=== PATIENT | female | born 1975 | race Caucasian/White ===

== ENCOUNTER 2020-06-03 19:42 | Emergency (ER) | payer MEDICAID, SELFPAY ==
[2020-06-03 20:39] VITALS: BP 125/75; PULSE 57; RESP 16; TEMP 37.3; O2SAT 97
[2020-06-03 20:46] VITALS: BP 125/55; PULSE 57; RESP 16; TEMP 37.3; O2SAT 97; BMI 28.3
[2020-06-03 21:12] LABS: COVID-19 Test Negative (Negative)
--- NOTE | 2020-06-04 04:09 | ED_ITS ---
HPI - URI/Sore Throat General Chief Complaint: Upper Respiratory Symptoms Stated Complaint: flu like Time Seen by Provider: 06/03/20 22:51 Source: patient Mode of arrival: ambulatory Limitations: no limitations History of Present Illness HPI Narrative: 44-year-old female with no significant past medical history presents to the emergency department for COVID-19 testing for positive COVID-19 contact. She is reporting headache, intermittent fevers, and cough. MD elicited complaint: fever, cough and other (Headache) Consistency: intermittent Severity: moderate Able to tolerate fluids by mouth: Yes Context: sick contacts Related Data Allergies Allergy/AdvReac Type Severity Reaction Status Date / Time No Known Allergies Allergy Unverified 12/19/19 19:39 [No Known Allergies*] Review of Systems Review of Systems: Constitutional: positive Fever, positive Chills, positive fatigue, positive Malaise ENT/Mouth: No sore throat, no runny nose Eyes: No Discharge Cardiovascular: No Chest Pain, No SOB Respiratory: No Cough, No Sputum, No Wheezing, No Smoke Exposure, No Dyspnea Gastrointestinal: No Nausea, No Vomiting, No Diarrhea Genitourinary: no irregular bleeding, No Dysuria, No Urinary Frequency, No Hematuria, No Urinary Incontinence, No Urgency, No Flank Pain, Musculoskeletal: positive Myalgia Skin: No rash Neuro: Positive Headache Yes all other systems are reviewed and are negative [facility] Past Medical History Attestation statement: The following information was validated with the patient. Source: old records reviewed Medical History (Updated 06/03/20 @ 22:51 by Anushka Webb NP) Bradycardia Surgical History H/O tubal ligation Social History Social History Advance Directives: No Advance Directives Information Provided: Yes Physical Exam Vital Signs: Vital Signs: Last Vital Signs Temp 99.2 F 06/03/20 20:46 Pulse 57 06/03/20 20:46 Resp 16 06/03/20 20:46 BP 125/55 L 06/03/20 20:46 Pulse Ox 97 06/03/20 20:46 Body Mass Index 28.3 Appearance: Alert. Oriented X3. No acute distress. Eyes: Pupils equal, round and reactive to light. ENT: Pharynx normal. Neck: Normal inspection. Neck supple. CVS: Normal heart rate and rhythm. Pulses normal. Respiratory: No respiratory distress. Breath sounds normal. Abdomen: Soft and nontender. Skin: Skin warm and dry. Normal skin color. Normal skin turgor. Extremities: No lower extremity edema. Neuro: No motor deficit. No sensory deficit. Course Course Course Narrative: 44-year-old female presents with known COVID positive contact with headache, intermittent cough, intermittent fevers and chills. COVID swab is negative. Patient was advised to treat herself as if she were positive until her symptoms have subsided. Patient verbalized understanding of and agrees to plan of care discharge home. MDM - URI/Sore Throat Differential Diagnosis Differential diagnosis: Likely upper respiratory infection, viral infection, influenza and pharyngitis Medical Records Attestation: I reviewed the patient's medical records. Lab Data Attestation: I reviewed the patient's lab results. Labs: Lab Results 06/03/20 Range/Units 20:49 COVID-19 ([place]) Negative (Negative) COVID-19 Clin Com See Note Discharge Plan Discharge Clinical Impression: COVID-19 Patient Disposition: Home, Self-Care Instructions: COVID-19 (Coronavirus Disease 2019) (ED) Additional Instructions: You were evaluated for symptoms consistent with COVID-19 and or COVID-19 positive exposure. Your COVID test results are negative. Thank you for choosing this emergency department for evaluation. Please follow-up with primary care physician as needed. Return to the emergency department for any new, concerning, or worsening symptoms. Interventions: ED Discharge Assessment Last Done: 06/03/20 23:00 Discharge Date/Time: 06/03/20 23:06
== END 2020-06-03 23:06 | disposition home or self-care (01) ==
PROVIDERS: Emergency Provider Emergency Medicine
DX: U07.1 COVID-19 (principal); R51.9 Headache, unspecified; R50.9 Fever, unspecified; R05 Cough
CPT/HCPCS: 36415; 87635; 99283

== ENCOUNTER 2020-06-19 15:32 | Outpatient (REF) | payer MEDICAID, SELFPAY | END 2020-06-19 15:33 | disposition home or self-care (01) | LOC: HO.LAB 15:32 | PROVIDERS: Visit Provider Internal Medicine | DX: Z20.822 Contact with and (suspected) exposure to COVID-19 (principal) | CPT/HCPCS: 36415; C9803; U0003; U0005 ==

== ENCOUNTER 2020-06-26 15:22 | Outpatient (REF) | payer MEDICAID, SELFPAY | END 2020-06-26 15:23 | disposition home or self-care (01) | LOC: HO.LAB 15:22 | PROVIDERS: Visit Provider Internal Medicine | DX: Z20.822 Contact with and (suspected) exposure to COVID-19 (principal) | CPT/HCPCS: 36415; C9803; U0003; U0005 ==

== ENCOUNTER 2020-10-24 06:53 | Emergency (ER) | payer MEDICAID, SELFPAY ==
[2020-10-24 07:05] VITALS: BP 147/71; PULSE 46; RESP 17; TEMP 36.9; O2SAT 96; BMI 28.3
--- NOTE | 2020-10-24 07:41 | ED_ITS ---
HPI - General Adult General Chief complaint: General Medical Stated complaint: jaw infection Time Seen by Provider: 10/24/20 07:40 Source: patient Mode of arrival: ambulatory Limitations: no limitations History of Present Illness HPI narrative: 44-year-old female came in for evaluation for right-sided facial pain. 44-year-old female who has widespread dental decay problem, came in with right- sided come pain and right-sided facial pain and swelling. Patient is awaiting to see a dentist for dental work. Patient declined any fever, or abscess. Related Data Previous Rx's Medication Instructions Recorded amoxicillin 500 mg PO Q8H #20 tab 10/24/20 ibuprofen 400 mg PO Q8H PRN #20 tab 10/24/20 Allergies Allergy/AdvReac Type Severity Reaction Status Date / Time No Known Allergies Allergy Unverified 12/19/19 19:39 [No Known Allergies*] Review of Systems Review of Systems: All other systems are reviewed and are negative Constitutional: Reports as per HPI and Reports no additional constitutional complaints Eyes: Reports as per HPI and Reports no additional eye complaints Reports system reviewed and no additional complaints, except as documented Cardiovascular: Reports as per HPI and Reports no additional cardiovascular complaints Respiratory: Reports as per HPI and Reports no additional respiratory complaints Gastrointestinal: Reports as per HPI and Reports no additional gastrointestinal complaints Genitourinary: Reports no additional female genitourinary complaints Musculoskeletal: Reports no additional musculoskeletal complaints Skin/Breast: Reports system reviewed and no additional complaints, except as docu Psychiatric: Reports no additional psychiatric complaints Endocrine: Reports no additional endocrine complaints Hematologic/Lymphatic: Reports no additional hematologic/lymphatic complaints Allergic/Immunologic: Reports no additional allergic/immunologic complaints Reports system reviewed and no additional complaints, except as documented and Reports Abnormal speech present [facility] Past Medical History Medical History Bradycardia Surgical History H/O tubal ligation Social History Social History Advance Directives: Yes Advance Directives Information Provided: No Advance Directives on File: No Patient : No Physical Exam Vital Signs: Vital Signs: Last Vital Signs Temp 98.5 F 10/24/20 07:05 Pulse 46 L 10/24/20 07:05 Resp 17 10/24/20 07:05 BP 147/71 H 10/24/20 07:05 Pulse Ox 96 10/24/20 07:05 Body Mass Index 28.3 Vital signs have been reviewed as appeared to be correct. Blood pressure normal. Heart rate normal. Respiration rate normal. Temperature normal. Oxygen saturation normal. Appearance: Alert. Oriented X3. No acute distress. Head: Normal external exam. Normocephalic. Atraumatic. No Tobias signs noted. No raccoon eyes noted Dental exam: Widespread decay, right-sided lower gum swelling and tenderness, no fluctuation. Eyes: PERRLA. EOMI. Conjunctiva and sclera normal. Eyelids normal. ENT: TM's Normal. Pharynx normal. Uvula midline. Moist mucous membranes. No trismus noted. No drooling noted. No muffled voice noted. Neck: Normal inspection. Neck supple. FROM. No adenopathy. Thyroid Normal. No meningeal signs. No neck mass noted. CVS: Normal heart rate and rhythm. Heart sound normal. No murmurs noted. Pulses normal throughout. Respiratory: No respiratory distress. Painless inspiration. Breath sounds normal. No wheezes/rales/rhonchi noted. Chest nontender. No accessory muscle usage noted or decreased air movement noted. Abdomen: Soft and nontender. Bowel sounds normal in all 4 quadrants. No distention noted. No organomegaly noted. No visible injury noted. Back: No CVA tenderness. Full range of motion noted. Skin: Skin warm and dry. Normal skin color. Normal skin turgor. No rashes/lesions/lacerations noted. Extremities: No lower extremity edema. Extremities exhibit normal range of motion. Extremities nontender. Neuro: Oriented X 3. No motor deficit. No sensory deficit. Reflexes normal. Course Course Course Narrative: Assessment and plan. 44-year-old female history of widespread dental decay, presented with gingivitis and right-sided facial cellulitis. Start on amoxicillin, NSAIDs, follow up with the dentist. Discharge Plan Discharge Clinical Impression: Dental infection Patient Disposition: Home, Self-Care Instructions: Gingivitis (ED) Prescriptions: New amoxicillin 500 mg tablet 500 mg PO Q8H Qty: 20 RF: 0 ibuprofen 400 mg tablet 400 mg PO Q8H PRN (Reason: pain) Qty: 20 RF: 0 Referrals: Physician,Unknown [Primary Care Provider] - 2 days (SEE YOUR DENTIST WITHIN A WEEK.)
[2020-10-24] MEDS: Ibuprofen 600 MG TABLET PO (08:01)
[2020-10-24] MEDS: Amoxicillin 500 MG CAPSULE PO (08:02)
== END 2020-10-24 07:55 | disposition home or self-care (01) ==
PROVIDERS: Emergency Provider Emergency Medicine
DX: K04.7 Periapical abscess without sinus (principal); K02.9 Dental caries, unspecified
CPT/HCPCS: 99283

== ENCOUNTER 2022-08-22 15:37 | Emergency (ER) | payer MEDICAID, SELFPAY ==
--- NOTE | 2022-08-22 16:11 | ED_ITS ---
HPI - Ear Problem General Stated complaint: ? left ear infection Time Seen by Provider: 08/22/22 16:12 Source: patient Mode of arrival: ambulatory Limitations: no limitations Related Data Previous Rx's Medication Instructions Recorded amoxicillin 500 mg tablet 500 mg PO Q8H #20 tabs 10/24/20 ibuprofen 400 mg tablet 400 mg PO Q8H PRN pain #20 tabs 10/24/20 Allergies Allergy/AdvReac Type Severity Reaction Status Date / Time No Known Allergies Allergy Unverified 12/19/19 19:39 [No Known Allergies*] Review of Systems Review of Systems: Yes all other systems are reviewed and are negative Constitutional: Constitutional: Reports no additional constitutional complaints, Denies body ache(s), Denies chills, Denies fever(s), Denies headache(s) and Denies weakness Eyes: Eyes: Reports no additional eye complaints and Denies change in vision ENT: Reports system reviewed and no additional complaints, except as documented, Denies dizziness, Denies ear discharge, Reports otalgia, Denies headache(s), Denies nasal congestion, Denies nasal discharge and Denies neck pain Cardiovascular: Cardiovascular: Reports no additional cardiovascular complaints, Denies chest pain, Denies leg edema and Denies dyspnea Respiratory: Respiratory: Reports no additional respiratory complaints, Denies cough and Denies dyspnea Gastrointestinal: Gastrointestinal: Reports no additional gastrointestinal complaints, Denies abdominal pain, Denies diarrhea, Denies nausea and Denies vomiting Genitourinary: Genitourinary: Reports no additional female genitourinary complaints and Denies urinary incontinence Musculoskeletal: Musculoskeletal: Reports no additional musculoskeletal complaints, Denies back pain, Denies arthralgias, Denies joint swelling, Denies neck pain, Denies numbness and Denies tingling Integumentary/Breasts: Skin/Breast: Reports system reviewed and no additional complaints, except as docu and Denies rash Neurologic: Reports system reviewed and no additional complaints, except as documented, Denies Abnormal speech present, Denies dizziness, Denies headache(s), Denies numbness, Denies tingling and Denies weakness PMFSH Past Medical History Attestation statement: The following information was validated with the patient. Source: old records reviewed and nursing notes reviewed Medical History Bradycardia Surgical History H/O tubal ligation Physical Exam Const: General: cooperative, healthy appearing, comfortable and no acute dist ress Orientation/consciousness: patient oriented x3 Limitations: no limitations HEENT: Head: Yes normal to inspection Ears: hearing grossly normal bilaterally General nose exam: Normal external nose present Face and sinus: Yes normal facial exam Mouth: Normal oral and palatal mucosa present Throat: Yes posterior oropharynx normal Eyes: General: appearance normal, both eyes and all related structures Pupils: Equal, round and reactive pupils present Neck: Neck: Yes normal visual inspection Chest: Chest palpation & inspection: normal inspection of the chest Resp: Effort & Inspection: normal respiratory effort Auscultation: clear to auscultation bilaterally Cardio: Rate: regular rate Rhythm: regular rhythm Peripheral pulses: Peripheral pulses 2+ throughout GI: Inspection: Yes normal to inspection Palpation (GI): Soft to palpation and nontender Auscultation: normal bowel sounds Back/Spine/Pelvis: Thoracic/Lumbar Spine: thoracic and lumbar spine normal to inspection Skin: General skin exam: no rashes or lesions noted Neuro: General: patient oriented x3, no focal motor deficits and normal sensation to monofilament Cranial nerves: Yes Equal, round and reactive pupils present Cognition (Neuro): normal cognition Speech: No Abnormal speech present Gait exam (Neuro): Normal gait present Motor exam (neuro): 5/5 motor strength present throughout Extrem: General: Yes normal to inspection Discharge Plan Discharge Prescriptions: No Action amoxicillin 500 mg tablet 500 mg PO Q8H Qty: 20 0RF ibuprofen 400 mg tablet 400 mg PO Q8H PRN (Reason: pain) Qty: 20 0RF
[2022-08-22 16:12] VITALS: BP 140/61; PULSE 56; RESP 18; TEMP 36.8; O2SAT 98; BMI 29.2
--- NOTE | 2022-08-22 16:15 | ED_ITS ---
HPI - Ear Problem General Chief complaint: Ear Problems Stated complaint: ? left ear infection Time Seen by Provider: 08/22/22 16:12 Source: patient Mode of arrival: ambulatory Limitations: no limitations History of Present Illness HPI Narrative: Patient is a 46 year old assigned female at with no reported medical history presenting to the emergency department today with left ear pain. Patient states that she feels as though her left ear is full. Patient denies any dizziness, lightheadedness, abdominal pain, nausea, vomiting, fever, chills, blurry vision, double vision, loss of vision, chest pain, difficulty breathing, shortness of breath, back pain, night sweats, pain with urination, increased urinary frequency, increased urinary urgency, blood in her urine or stool, syncope or a near syncopal episode, recent trauma or falls, bowel incontinence, bladder incontinence, bowel retention, bladder retention, or any other complaints at this time. MD Complaint: ear pain Location: left ear Duration: constant Severity: mild Relieving factors: nothing Exacerbating factors: nothing Discharge from ear: no Treatment prior to arrival: none Related Data Previous Rx's Medication Instructions Recorded amoxicillin 500 mg tablet 500 mg PO Q8H #20 tabs 10/24/20 ibuprofen 400 mg tablet 400 mg PO Q8H PRN pain #20 tabs 10/24/20 amoxicillin 875 mg-potassium 1 tab PO BID 7 days #14 tabs 08/22/22 clavulanate 125 mg tablet Allergies Allergy/AdvReac Type Severity Reaction Status Date / Time No Known Allergies Allergy Unverified 12/19/19 19:39 [No Known Allergies*] Review of Systems Constitutional: Constitutional: Reports no additional constitutional complaints, Denies chills, Denies fever(s) and Denies night sweats Eyes: Eyes: Reports no additional eye complaints, Denies blurry vision, Denies change in vision, Denies diplopia, Denies eye discharge, Denies loss of vision and Denies eye pain ENT: Denies dizziness Comments: left ear pain Cardiovascular: Cardiovascular: Reports no additional cardiovascular compl aints, Denies chest pain, Denies lightheadedness, Denies Loss of Consciousness and Denies dyspnea Respiratory: Respiratory: Reports no additional respiratory complaints and Denies dyspnea Gastrointestinal: Gastrointestinal: Reports no additional gastrointestinal complaints, Denies abdominal pain, Denies melena, Denies hematochezia, Denies change in bowel habits and Denies change in stool character Genitourinary: Genitourinary: Denies hematuria, Denies urinary frequency, Denies dysuria, Denies urinary incontinence, Denies urinary hesitancy and Denies urinary urgency Musculoskeletal: Musculoskeletal: Reports no additional musculoskeletal complaints, Denies numbness and Denies tingling Neurologic: Denies dizziness, Denies loss of vision, Denies numbness and Denies tingling Psychiatric: Psychiatric: Reports no additional psychiatric complaints Endocrine: Endocrine: Reports no additional endocrine complaints Hematologic/Lymphatic: Hematologic/Lymphatic: Reports no additional hematol ogic/lymphatic complaints Allergic/Immunologic: Allergic/Immunologic: Reports no additional allergic/immunologic complaints [facility] Past Medical History Attestation statement: The following information was validated with the patient. Source: old records reviewed and nursing notes reviewed Medical History Bradycardia Surgical History H/O tubal ligation Social History Social History Advance Directives: No Advance Directives Information Provided: Yes Physical Exam Vital Signs: Vital Signs: Last Vital Signs Temp 98.3 F 08/22/22 16:12 Pulse 56 08/22/22 16:12 Resp 18 08/22/22 16:12 BP 140/61 H 08/22/22 16:12 Pulse Ox 98 08/22/22 16:12 O2 Del Method Room Air 08/22/22 16:12 BMI result Body Mass Index 29.2 Const: General: cooperative, no acute distress, alert and awake Nutritional Appearance: well nourished Orientation/consciousness: patient oriented x3 Limitations: no limitations HEENT: Head: Yes normal to inspection and Yes atraumatic Ears: hearing grossly normal bilaterally and other (cerumen impaction of the left ear) General nose exam: Normal external nose present, no nasal discharge noted and no epistaxis Face and sinus: Yes normal facial exam, No abrasion and No laceration Mouth: Normal oral and palatal mucosa present, no drooling and no muffled voice Eyes: General: appearance normal, both eyes and all related structures Periorbital: periorbital findings normal Eyelids: Yes eyelids normal Conjunctivae: conjunctivae normal Pupils: Equal, round and reactive pupils present EOM: EOMs intact bilaterally Neck: Neck: Yes normal visual inspection, Yes full ROM and Yes no lymphadenopathy Chest: Chest palpation & inspection: normal inspection of the chest Resp: Effort & Inspection: normal respiratory effort and able to speak in complete sentences GI: Inspection: Yes normal to inspection Neuro: General: patient oriented x3 and moves all extremities Cranial nerves: Yes Equal, round and reactive pupils present Cognition (Neuro): normal cognition Motor exam (neuro): 5/5 motor strength present throughout Sensory Exam: Normal double simultaneous stimulation for sensation Coordination: [id number] test normal Extrem: General: Yes normal to inspection, Yes full ROM and Yes capillary refill normal Psych: Appearance: grossly normal Mental Status: mental status grossly normal Affect: normal affect Attitude: cooperative Thought process: Normal thought process present Thought content: Normal thought content present Insight: Good insight present (Psych) Course Course Course Narrative: This is a rapid medical exam. Defer additional HPI, ROS, PE department provider. 46-year-old female here with left ear pain and cough for the last few days. On exam unable to visualize TM as patient has ear wax obstructing the TM. Will need ear flushed. VSS Medications Administered Discontinued Medications Generic Name Dose Route Start Last Admin Trade Name Freq PRN Reason Stop Dose Admin Docusate Sodium 100 mg 08/22/22 17:43 08/22/22 17:48 Docusate Sodium 100 Mg/10 Ml Liquid PO 08/22/22 17:44 100 mg ONCE ONE Administration Procedures Ear Wax Removal Left Ear: Cerumenolytic Used: Colace Results: Re-examined: cerumen removed completely TM Examination: TM(s) erythematous Ear Canal Exam: atraumatic Patient Tolerated Procedure: well Complications: no problems Technique: ear canal irrigated Medical Decision Making Medical Decision Making [facility] Narrative: Patient is a 46 year old assigned female at with no reported medical history presenting to the emergency department today with left ear pain. Patient's physical exam showed cerumen impaction of the left ear and an erythematous left TM. I explained my physical exam findings to the patient. I answered all questions asked by the patient. Patient's left ear was irrigated, without incident. I stressed the importance of the patient taking her medication as prescribed. I stressed the importance of the patient following up with her primary care provider. I stressed the importance of the patient returning to the emergency department immediately if her symptoms were to worsen or if she were to develop any dizziness, shortness of breath, difficulty breathing, chest pain, blurry vision, loss of vision, nausea, vomiting, abdominal pain, fever, chills, back pain, or any other complaints. Patient verbalized agreement and understanding with this treatment plan and discharge. Differential Diagnosis Differential Diagnoses: The differential diagnosis associated with the presentation includes left cerumen impaction, left otitis media Discharge Plan Discharge Clinical Impression: Otitis media Patient Disposition: Home, Self-Care Instructions: Ear Infection (ED) Additional Instructions: Follow up with your primary care provider. Return to the emergency department immediately if your symptoms worsen or if you develop any dizziness, shortness of breath, difficulty breathing, chest pain, blurry vision, loss of vision, nausea, vomiting, abdominal pain, fever, chills, back pain, or any other complaints. Prescriptions: New amoxicillin-pot clavulanate 875-125 mg tablet 1 tab PO BID 7 Days Qty: 14 0RF No Action amoxicillin 500 mg tablet 500 mg PO Q8H Qty: 20 0RF ibuprofen 400 mg tablet 400 mg PO Q8H PRN (Reason: pain) Qty: 20 0RF Referrals: [facility] [Primary Care Provider] - Stand Alone Forms: Work/School Release Print Language: [place]guill[place]
[2022-08-22] MEDS: Docusate Sodium 100 MG/10 ML LIQUID PO (17:48)
== END 2022-08-22 18:34 | disposition home or self-care (01) ==
PROVIDERS: Emergency Provider Student in an Organized Health Care Education/Training Program
DX: H66.92 Otitis media, unspecified, left ear (principal); H61.22 Impacted cerumen, left ear
CPT/HCPCS: 69209; 99282; 99283

== ENCOUNTER 2023-04-06 14:19 | Emergency (ER) | payer MEDICAID, SELFPAY ==
[2023-04-06 15:07] VITALS: BP 176/102; PULSE 63; RESP 18; TEMP 36.6; O2SAT 95; BMI 28.3
[2023-04-06 15:11] VITALS: BP 169/89
--- NOTE | 2023-04-06 16:15 | ED.GENADULT ---
HPI - General Adult General Chief complaint: Dental/Oral Stated complaint: Infection in jaw ? Time Seen by Provider: 04/06/23 16:04 Source: patient Mode of arrival: ambulatory Limitations: no limitations History of Present Illness HPI narrative: 47 yold female with poor dental hygeine, and dental decay presents to the ED for right lower dental pain. patient denies any facial or neck swelling. patient denies any drooling, change in voice, or inability to tolerate liquids or food Related Data Previous Rx's Medication Instructions Recorded amoxicillin 500 mg tablet 500 mg PO Q8H #20 tabs 10/24/20 ibuprofen 400 mg tablet 400 mg PO Q8H PRN pain #20 tabs 10/24/20 amoxicillin 875 mg-potassium 1 tab PO BID 7 days #14 tabs 08/22/22 clavulanate 125 mg tablet amoxicillin 875 mg-potassium 1 tab PO BID 10 days #20 tabs 04/06/23 clavulanate 125 mg tablet naproxen 500 mg tablet 500 mg PO BID PRN pain 7 days #14 04/06/23 tabs Allergies Allergy/AdvReac Type Severity Reaction Status Date / Time No Known Allergies Allergy Verified 04/06/23 15:10 [No Known Allergies*] Review of Systems Review of Systems: RIght dental pain Yes all other systems are reviewed and are negative PMFSH Past Medical History Onset Date is defined in the Problem List Problems that require an onset date and time if occurred within 24 hrs of arrival to the ED Aortic Dissection and Rupture; Neurologic impairment; Cardiopulmonary Arrest; Endotracheal Intubation; Insertion or Replacement of Mechanical Circulatory Assist Device Medical History Bradycardia Surgical History H/O tubal ligation Social History Social History Advance Directives: No Advance Directives Information Provided: No Physical Exam ED Vital Signs: Vital Signs - 24 hr 04/06/23 15:07 04/06/23 15:11 Temperature 97.9 F Pulse Rate 63 Respiratory Rate 18 Blood Pressure 176/102 H 169/89 H Pulse Oximetry 95 Oxygen Delivery Method Room Air BMI result Body Mass Index 28.3 Const General: cooperative, healthy appearing, comfortable, no acute distress, well developed, alert and awake Orientation/consciousness: oriented to person, oriented to place, oriented to time and patient oriented x3 HENMT Other: negative for any facial sweling or neck swelling. patient is speaking in full sentence. no drooling, trismus, or chainge in voice Head: Yes normal to inspection, Yes No palpable skull fracture present, Yes normocephalic and Yes atraumatic Ears: hearing grossly normal bilaterally, external ears normal, TM's normal bilaterally, TM normal on the right, TM normal on the left and EAC's normal Teeth image: 1. dental decay with yellow collection in the tooth. negative for gum swelling, erythema, or fluctulance. negative for trismus Throat: Yes posterior oropharynx normal, Yes tonsils normal and Yes uvula midline Eyes General: appearance normal, both eyes and all related structures Neck Neck: Yes normal visual inspection, Yes full ROM, Yes no lymphadenopathy, Yes no meningeal signs, Yes trachea midline, Yes supple, No anterior neck swelling and No tender Chest Chest palpation & inspection: normal inspection of the chest and normal palpation of entire chest wall Resp Effort & Inspection: normal respiratory effort and able to speak in complete sentences Auscultation: clear to auscultation bilaterally Cardio Jugular venous distension: no JVD Heart sounds: S1 normal heart sound present and S2 normal heart sound present GI Inspection: Yes normal to inspection Palpation (GI): Soft to palpation, not firm, nontender, no guarding and not rigid General: Yes no CVA tenderness Back/Spine/Pelvis Back: no CVA tenderness and No back tenderness Skin General skin exam: no rashes or lesions noted, elasticity normal and turgor normal Neuro General: oriented to person, oriented to place, oriented to time, patient oriented x3, gait normal, tone normal, moves all extremities, Normal light touch and pain sensation, no meningeal signs and no focal motor deficits Extrem General: Yes normal to inspection, Yes full ROM and Yes capillary refill normal Psych Appearance: grossly normal, well kempt and not disheveled Course Course Course Narrative: RME: 47-year-old female presents to ED for lower dental pain and jaw pain. Patient denies any recent trauma. Patient states no drooling or change in voice. Patient denies any inability tolerate solid food/liquid. Medical Decision Making Medical Decision Making [facility] Narrative: 47 yold female presents to the ED for right dental pain without any trauma. Patient has pmh of dental decay and dental hygeine. Exam shows infection in tooth. NOt suspecting allie angina, retroppharyngeal abscess, peritonsiilar abscess, Gum abscess, cellulitis, osteomyelitits or facial abscess Differential Diagnosis Differential Diagnoses: The differential diagnosis associated with the presentation includes (toothache, tooth infection) External Record Review External record reviewed: Other (Prior visits) Prescription Management I considered prescription management with: Pain Medication and Antibiotic Discharge Plan Discharge Clinical Impression: Toothache Patient Disposition: Home, Self-Care Instructions: Toothache (ED) Additional Instructions: Please follow-up with dentist and PCP. Return to the ED immediately for any facial swelling, drooling, neck swelling, inability tolerate solid food/liquid, chest pain, shortness of breath, change in voice, swelling, sensation of throat closing, or any other concerning symptoms. Prescriptions: New amoxicillin-pot clavulanate 875-125 mg tablet 1 tab PO BID 10 Days Qty: 20 0RF naproxen 500 mg tablet 500 mg PO BID PRN (Reason: pain) 7 Days Qty: 14 0RF No Action amoxicillin 500 mg tablet 500 mg PO Q8H Qty: 20 0RF ibuprofen 400 mg tablet 400 mg PO Q8H PRN (Reason: pain) Qty: 20 0RF amoxicillin-pot clavulanate 875-125 mg tablet 1 tab PO BID 7 Days Qty: 14 0RF Stand Alone Forms: Work/School Release Interventions: ED Discharge Assessment Last Done: 04/06/23 16:26 Discharge Date/Time: 04/06/23 16:28 Print Language: Polish
== END 2023-04-06 16:28 | disposition home or self-care (01) ==
PROVIDERS: Emergency Provider Emergency Medicine
DX: K08.89 Other specified disorders of teeth and supporting structures (principal)
CPT/HCPCS: 99282; 99283

== ENCOUNTER → 2024-02-28 00:10 | Outpatient (BNV) | payer MEDICAID, SELFPAY | PROVIDERS: Emergency Provider Emergency Medicine; Visit Provider Internal Medicine | DX: R94.31 Abnormal electrocardiogram [ECG] [EKG] (principal) | CPT/HCPCS: 93010 ==

== ENCOUNTER 2024-02-28 00:13 | Emergency (ER) | payer MEDICAID, SELFPAY ==
--- NOTE | 2024-02-28 | ECG_ITS ---
Test Reason : CHEST PAIN Blood Pressure : / mmHG Vent. Rate : 079 BPM Atrial Rate : 079 BPM P-R Int : 172 ms QRS Dur : 090 ms QT Int : 392 ms P-R-T Axes : 049 005 034 degrees QTc Int : 449 ms Normal sinus rhythm Possible Left atrial enlargement Cannot rule out Inferior infarct , age undetermined Abnormal ECG No previous ECGs available Referred By: Generic ED Physician Electronically Signed By:JOSIAH DIOP
--- NOTE | ~2024-02-28 | XR_ITS ---
EXAMINATION: XR CHEST CLINICAL INFORMATION: cp COMPARISON: None available. TECHNIQUE: 2 views of the chest were obtained. FINDINGS: No significant abnormality is noted involving the heart, lungs, mediastinum, bony thorax or soft tissues. XR/XR chest 2V IMPRESSION: Unremarkable examination. Electronically signed by: Nicholas Hilton MD 02/28/2024 01:35 AM [facility]
[2024-02-28 00:20] VITALS: BP 154/102; PULSE 75; RESP 18; TEMP 36.9; O2SAT 97; BMI 29.1
[2024-02-28 00:44] LABS: MANUAL DIFF FLAG NO
[2024-02-28 00:46] LABS: Basophils Absolute Auto 0.1 X10*3/uL (0.0-0.2); Basophils Percent Auto 0.6 % (0-2); Eosinophils Absolute Auto 0.2 X10*3/uL (0.0-0.4); Eosinophils Percent Auto 2.1 % (0-4); Hematocrit 40.9 % (37.0-47.0); Imm Gran Abs Auto 0.02 X10*3/uL (0.00-0.03); Imm Gran Pct Auto 0.2 % (0.0-0.4); Lymphocytes Absolute Auto 3.7 X10*3/uL (1.2-4.9); Lymphocytes Percent Auto 39.2 % (20-40); Mean Corpuscular HGB Conc 34.2 g/dl (31.0-35.0); Mean Corpuscular Hemoglobin 29.9 pg (27.0-33.0); Mean Corpuscular Volume 87.4 fL (80.0-98.0); Monocytes Absolute Auto 0.6 X10*3/uL (0.1-1.2); Monocytes Percent Auto 6.2 % (2-11); Neutrophils Absolute Auto 4.8 x10*3/uL (2.0-8.3); Neutrophils Percent Auto 51.7 % (45-73); Platelet Count 296 X10*3/uL (160-400); Red Blood Count 4.68 X10*6/uL (4.20-5.50); Red Cell Distribution Width 13.3 % (11.0-16.0); White Blood Count 9.3 X10*3/uL (4.8-10.8)
--- NOTE | 2024-02-28 00:54 | ED_ITS ---
HPI - Chest Pain General Chief Complaint: Chest Pain Stated Complaint: chest pain Time Seen by Provider: 02/28/24 00:51 Source: patient and old records reviewed Mode of arrival: ambulatory Limitations: no limitations History of Present Illness ED Provider: RAJESH LABOY narrative: 48 yo female with PMH of bradycardia here with c/o couple of days of zinging upper L chest pain that is worse with breathing and movements. She has no associated URI, dyspnea, n/v. Pain did hurt more when she moved her L arm. No recent travel or procedures. MD complaint: chest pain Onset (ago): day(s) (couple) Timing of current episode: episodic Prior episodes: No Onset: during rest Pain location: left chest Pain radiation: none Severity: moderate Quality: aching Relieving factors: nothing Exacerbating factors: inspiration and palpation Treatment prior to arrival: none Related Data Previous Rx's ?Medication ?Instructions ?Recorded amoxicillin 500 mg tablet 500 mg PO Q8H #20 tabs 10/24/20 ibuprofen 400 mg tablet 400 mg PO Q8H PRN pain #20 tabs 10/24/20 amoxicillin 875 mg-potassium 1 tab PO BID 7 days #14 tabs 08/22/22 clavulanate 125 mg tablet amoxicillin 875 mg-potassium 1 tab PO BID 10 days #20 tabs 04/06/23 clavulanate 125 mg tablet naproxen 500 mg tablet 500 mg PO BID PRN pain 7 days #14 04/06/23 tabs albuterol sulfate 90 mcg/actuation 2 puff inhalation QID PRN 02/28/24 aerosol inhaler shortness of breath or wheezing #6.7 grams Allergies Allergy/AdvReac Type Severity Reaction Status Date / Time No Known Allergies Allergy Verified 02/28/24 00:24 [No Known Allergies*] Review of Systems 2 Review of Systems: Constitutional : No Weight loss, No Fever, No Chills ENT/Mouth : No sore throat, No Rhinorrhea Eyes: No Eye Pain, No Swelling Cardiovascular : pos Chest Pain, no SOB, no Dyspnea on Exertion, No Orthopnea, No Edema, No Palpitations Respiratory : No Cough, No Sputum Gastrointestinal : no Nausea, No Vomiting, No Diarrhea, No abdominal Pain, No Hematochezia, No Melena Genitourinary : No Dysuria, No Urinary Frequency Musculoskeletal : No joint pain, No Myalgias, No Joint Swelling Skin : No Skin Lesions, No rash Neuro : No Weakness, No Numbness, No Dizziness, No Headache All other systems reviewed and are negative [facility] Past Medical History Attestation statement: The following information was validated with the patient. Source: old records reviewed Medical History Bradycardia Surgical History H/O tubal ligation Social History Social History (Updated 02/28/24 @ 00:55 by Kalyani Dotson DO) Patient Tobacco Use Status: Never used Tobacco Advance Directives: No Advance Directives Information Provided: Yes Physical Exam 2 Vital Signs: Vital Signs: Last Vital Signs Temp 98.5 F 02/28/24 00:20 Pulse 75 02/28/24 00:20 Resp 18 02/28/24 00:20 BP 154/102 H 02/28/24 00:20 Pulse Ox 97 02/28/24 00:20 O2 Del Method Room Air 02/28/24 00:20 BMI result Body Mass Index 29.1 Appearance: Alert. Oriented X3. No acute distress. Eyes: Pupils equal, round and reactive to light. ENT: Pharynx normal. Neck: Normal inspection. Neck supple. CVS: Normal heart rate and rhythm. Pulses normal. Respiratory: No respiratory distress. Breath sounds normal. Abdomen: Soft and nontender. Skin: Skin warm and dry. Normal skin color. Normal skin turgor. Extremities: No lower extremity edema. No calf ttp Neuro: Oriented X 3. No motor deficit. No sensory deficit. Medical Decision Making Medical Decision Making [facility] Narrative: 48 yo female with PMH of bradycardia here with c/o atypical chest pain denies any risk factors for VTE, no infectious symptoms at this time given duration of symptoms will obtain EKG, CXR, trop x 1, ddimer, if negative could be MSK Differential Diagnosis Differential Diagnoses: The differential diagnosis associated with the presentation includes atypical chest pain, low prob VTE, MSK pain, atypical for ACS, distal pulses intact doubt dissection Admission/Observation Consideration of admission/observation: Escalation of care including admission/observation considered negative workup stable for outpatient management Lab Data [facility] Lab Attestation statement: I reviewed the patient's lab results. 02/28/24 00:40 02/28/24 00:40 Labs: Lab Results 02/28/24 02/28/24 Range/Units 00:40 01:47 WBC 9.3 (4.8-10.8) X10*3/uL RBC 4.68 (4.20-5.50) X10*6/uL Hgb 14.0 (12.0-16.0) g/dl Hct 40.9 (37.0-47.0) % MCV 87.4 (80.0-98.0) fL MCH 29.9 (27.0-33.0) pg MCHC 34.2 (31.0-35.0) g/dl RDW 13.3 (11.0-16.0) % Plt Count 296 (160-400) X10*3/uL MPV 10.0 (9.4-12.3) fL Immature Gran % (Auto) 0.2 (0.0-0.4) % Neut % (Auto) 51.7 (45-73) % Lymph % (Auto) 39.2 (20-40) % Lares % (Auto) 6.2 (2-11) % Eos % (Auto) 2.1 (0-4) % Baso % (Auto) 0.6 (0-2) % Lymph # (Auto) 3.7 (1.2-4.9) X10*3/uL Lares # (Auto) 0.6 (0.1-1.2) X10*3/uL Eos # (Auto) 0.2 (0.0-0.4) X10*3/uL Baso # (Auto) 0.1 (0.0-0.2) X10*3/uL Abs Immat Gran (auto) 0.02 (0.00-0.03) X10*3/uL Absolute Neuts (auto) 4.8 (2.0-8.3) x10*3/uL Absolute Nucleated RBC 0.000 (0.0-0.012) X10*3/uL Nucleated RBC % (auto) 0.0 (0.0-0.2) /100WBC D-Dimer High Sensitivty < 150 NG/ML Sodium 138 (135-145) mmol/L Potassium 3.9 (3.3-5.1) mmol/L Chloride 104 (96-108) mmol/L Carbon Dioxide 28 (22-29) mmol/L Anion Gap 10 L (12-20) BUN 7 L (9-16) mg/dL Creatinine 0.71 (0.5-1.4) mg/dL Estim Creat Clear Calc 103.0 Estimated GFR > 60 Random Glucose 111 (60-115) mg/dL Calcium 9.7 (8.4-10.2) mg/dL Total Bilirubin 0.5 (0.0-1.0) mg/dL AST 19 (5-31) U/L ALT 15 (0-31) U/L Alkaline Phosphatase 60 (39-117) U/L Troponin I High Sens < 2.7 (<3.5-17.0) ng/L Total Protein 7.4 (6.5-8.0) g/dL Albumin 4.3 (3.5-5.0) g/dL Independent Interpretation I performed an independent interpretation of an: EKG and Plain X-Ray (normal) Interpretation: Rate: 79 Rhythm: NSR [place]: left Normal P waves. Normal [place]. Normal QRS complex. ST T wave : no FABIAN, inverted t waves V1 qTC: 449 prior studies: no acute ischemia The study has been interpreted contemporaneously by me. . Radiology Impression Discussion of test interpretation with radiology: I have reviewed the radiologist's reading. External Record Review External record reviewed: Outpatient record Prescription Management I considered prescription management with: Other Discharge Plan Discharge Clinical Impression: Atypical chest pain Patient Disposition: Home, Self-Care Instructions: Chest Pain (ED) Additional Instructions: EKG reassuring labs reassuring troponin for heart attack negative blood clot test negative chest xray normal please follow up with your doctor if this continues return for any worsening symptoms or concerns. Prescriptions: New albuterol sulfate 90 mcg/actuation HFA aerosol inhaler 2 puff inhalation QID PRN (Reason: shortness of breath or wheezing) Qty: 6.7 0RF No Action amoxicillin 500 mg tablet 500 mg PO Q8H Qty: 20 0RF ibuprofen 400 mg tablet 400 mg PO Q8H PRN (Reason: pain) Qty: 20 0RF amoxicillin-pot clavulanate 875-125 mg tablet 1 tab PO BID 10 Days Qty: 20 0RF naproxen 500 mg tablet 500 mg PO BID PRN (Reason: pain) 7 Days Qty: 14 0RF amoxicillin-pot clavulanate 875-125 mg tablet 1 tab PO BID 7 Days Qty: 14 0RF Stand Alone Forms: Work/School Release Print Language: [place]
[2024-02-28 00:58] LABS: Alanine Aminotransferase 15 U/L (0-31); Albumin Level 4.3 g/dL (3.5-5.0); Alkaline Phosphatase 60 U/L (39-117); Anion Gap 10 (12-20); Aspartate Amino Transferase 19 U/L (5-31); Bilirubin Total 0.5 mg/dL (0.0-1.0); Blood Urea Nitrogen 7 mg/dL (9-16); Calcium 9.7 mg/dL (8.4-10.2); Carbon Dioxide 28 mmol/L (22-29); Chloride 104 mmol/L (96-108); Estimated Glomerular Filt Rate > 60; Glucose Random 111 mg/dL (60-115); Potassium 3.9 mmol/L (3.3-5.1); Sodium 138 mmol/L (135-145); Total Protein 7.4 g/dL (6.5-8.0)
[2024-02-28 01:05] LABS: Troponin-I High Sensitivity < 2.7 ng/L (<3.5-17.0)
[2024-02-28 02:06] LABS: D Dimer High Sensitivity < 150 NG/ML
[2024-02-28 03:25] VITALS: BP 137/80; PULSE 56; RESP 14; TEMP 36.9; O2SAT 97
[2024-02-28 04:00] VITALS: BP 137/80; PULSE 56; RESP 14; TEMP 536.9; TEMP 998.4; O2SAT 97
== END 2024-02-28 04:00 | disposition home or self-care (01) ==
PROVIDERS: Emergency Provider Emergency Medicine
DX: R07.89 Other chest pain (principal)
CPT/HCPCS: 36415; 71046; 80053; 84484; 85025; 85379; 93005; 99283; 99285

== ENCOUNTER 2024-11-05 02:58 | Emergency (ER) | payer MEDICAID, SELFPAY ==
[2024-11-05 03:05] VITALS: BP 137/79; PULSE 61; RESP 14; TEMP 36.2; O2SAT 95; BMI 28.8
[2024-11-05 03:28] LABS: IDNOW Serial# 6674DD1D; Strep A Nucleic Acid Positive (Negative)
[2024-11-05 04:01] LABS: Resp Syncy Virus RNA Qual PCR NEGATIVE (Negative); SARS COV2 PCR INHOUSE NEGATIVE (Negative)
--- NOTE | 2024-11-05 07:13 | ED.URI ---
HPI - URI/Sore Throat General Chief Complaint: Upper Respiratory Symptoms Stated Complaint: exposed to covid Time Seen by Provider: 11/05/24 07:06 Source: patient and old records reviewed Mode of arrival: ambulatory Limitations: no limitations History of Present Illness ED Provider: RAJESH LABOY Narrative: 48 yo female with no sig PMH here with c/o sore throat and runny nose x 2 days after sick contact who had strep and COVID. She has body aches and fevers as well as chills. She is able to talk and no drooling. No change in voice. MD elicited complaint: sore throat Onset (ago): day(s) (2) Consistency: progressively worsening Severity: moderate Description of mucous: clear Able to tolerate fluids by mouth: Yes Exacerbating factors: swallowing Relieving factors: nothing Context: sick contacts Associated symptoms: fever, chills and myalgias Treatments prior to arrival: none Related Data Previous Rx's ?Medication ?Instructions ?Recorded amoxicillin 500 mg tablet 500 mg PO Q8H #20 tabs 10/24/20 ibuprofen 400 mg tablet 400 mg PO Q8H PRN pain #20 tabs 10/24/20 amoxicillin 875 mg-potassium 1 tab PO BID 7 days #14 tabs 08/22/22 clavulanate 125 mg tablet amoxicillin 875 mg-potassium 1 tab PO BID 10 days #20 tabs 04/06/23 clavulanate 125 mg tablet naproxen 500 mg tablet 500 mg PO BID PRN pain 7 days #14 04/06/23 tabs albuterol sulfate 90 mcg/actuation 2 puff inhalation QID PRN 02/28/24 aerosol inhaler shortness of breath or wheezing #6.7 grams amoxicillin 500 mg tablet 500 mg PO BID #19 tabs 11/05/24 Allergies Allergy/AdvReac Type Severity Reaction Status Date / Time No Known Allergies (No Known Allergy Verified 11/05/24 03:06 Allergies*) Review of Systems Review of Systems: Constitutional : pos Fever, pos Chills, pos Fatigue ENT/Mouth : pos sore throat, pos Rhinorrhea Eyes: No Eye Pain, No Swelling, No Redness Cardiovascular : No Chest Pain, No SOB, No Dyspnea on Exertion Respiratory : No Cough, No Sputum Gastrointestinal : No Nausea, No Vomiting, No Diarrhea, No abdominal Pain Genitourinary : No Dysuria, No Urinary Frequency, No Hematuria, Musculoskeletal : No joint pain, No Myalgias, No Joint Swelling Skin : No Skin Lesions, No rash Neuro : No Weakness, No Numbness, No Dizziness, positive Headache All other systems reviewed and are negative [facility] Past Medical History Attestation statement: The following information was validated with the patient. Source: old records reviewed Medical History Bradycardia Surgical History H/O tubal ligation Social History Social History Patient Tobacco Use Status: Never used Tobacco Advance Directives: No Advance Directives Information Provided: No Do you have a plan to hurt others: No Plan Physical Exam Vital Signs: Vital Signs: Last Vital Signs Temp 97.1 F 11/05/24 03:05 Pulse 61 11/05/24 03:05 Resp 14 11/05/24 03:05 BP 137/79 11/05/24 03:05 Pulse Ox 95 11/05/24 03:05 O2 Del Method Room Air 11/05/24 03:05 BMI result Body Mass Index 28.8 Appearance: Alert. Oriented X3. No acute distress. Eyes: Pupils equal, round and reactive to light. ENT: Pharynx mod erythema/exudates uvula is midline, no hoarse voice and no drooling Neck: Normal inspection. Neck supple. CVS: Normal heart rate and rhythm. Pulses normal. Respiratory: No respiratory distress. Breath sounds normal. Abdomen: Soft and nontender. Skin: Skin warm and dry. Normal skin color. Normal skin turgor. Extremities: No lower extremity edema. No calf ttp Neuro: Oriented X 3. No motor deficit. No sensory deficit. CN2-12 intact Medical Decision Making Medical Decision Making [facility] Narrative: 48 yo female with PMH of bradycardia here with c/o sore throat, fevers, myalgias, URI symptoms - she was exposed to strep and COVID at this time no signs of abscess or [employer], not toxic and VS stable, will obtain swabs and start amox if + for strep Differential Diagnosis Differential Diagnoses: The differential diagnosis associated with the presentation includes strep, viral syndrome, COVID Admission/Observation Consideration of admission/observation: Escalation of care including admission/observation considered not toxic, normal O2 well hydrated Lab Data [facility] Lab Attestation statement: I reviewed the patient's lab results. Labs: Lab Results 11/05/24 Range/Units 03:14 Influenza Type A (PCR) NEGATIVE (Negative) Influenza Type B (PCR) NEGATIVE (Negative) RSV RNA Qual (PCR) NEGATIVE (Negative) SARS-CoV-2 RNA (RT-PCR) NEGATIVE (Negative) S. pyogenes GrpA ROD Positive A (Negative) External Record Review External record reviewed: Outpatient record Prescription Management I considered prescription management with: Antibiotic Discharge Plan Discharge Clinical Impression: Pharyngitis Qualifiers: Pharyngitis/tonsillitis etiology: streptococcus Qualified Code(s): J02.0 - Streptococcal pharyngitis Patient Disposition: Home, Self-Care Instructions: Pharyngitis (ED) Additional Instructions: negative for covid flu rsv positive for strep finish all antibiotics throw away toothbrush in 24 hours return for any worsening symptoms or concerns or no improvement in 48 hours next dose of antibiotics is tonight Prescriptions: New amoxicillin 500 mg tablet 500 mg PO BID Qty: 19 0RF No Action amoxicillin 500 mg tablet 500 mg PO Q8H Qty: 20 0RF ibuprofen 400 mg tablet 400 mg PO Q8H PRN (Reason: pain) Qty: 20 0RF amoxicillin-pot clavulanate 875-125 mg tablet 1 tab PO BID 10 Days Qty: 20 0RF naproxen 500 mg tablet 500 mg PO BID PRN (Reason: pain) 7 Days Qty: 14 0RF albuterol sulfate 90 mcg/actuation HFA aerosol inhaler 2 puff inhalation QID PRN (Reason: shortness of breath or wheezing) Qty: 6.7 0RF amoxicillin-pot clavulanate 875-125 mg tablet 1 tab PO BID 7 Days Qty: 14 0RF Stand Alone Forms: Work/School Release Print Language: Yoruba
--- OUTSIDE RECORDS SUMMARY | 2024-11-05 07:37 | XMS_ITS | Clinical Summary ---
Author Organization [employer] Address [address] [place] [address] Care Team Providers Care Acute Care Assistant Name Role Phone Unavailable Primary Care Provider Unavailabl e Social History Tobacco Use Types Packs/Day Years Used Date Smoking Tobacco: Never Assessed Comments Unknown Sex and Gender Information Value Date Recorded Sex Assigned at Not on file Legal Sex Female 1:45 PM EST Gender Identity Not on file Sexual Orientation Not on file Plan of Treatment Health Maintenance Due Date Last Done Comments CT Colonography 1977 Colonoscopy 1977 Colorectal Cancer Screening 1977 Depression Screening 1977 FIT DNA/Cologuard 1977 FIT 1977 FOBT 1977 HIV Screening 1977 SDOH Screening 1977 Sigmoidoscopy 1977 Disability Screening 1977 Alcohol/Substance Use Screening 1989 Tobacco Screening 1989 Family Planning (PISQ) 1992 Hepatitis C Screening 11/13/1995 DTaP/Tdap/Td Vaccines (1 - Tdap) 1996 Hepatitis B Vaccines (1 of 3 - 19+ 3-dose series) 1996 Pap Smear 1998 Cervical Cancer Screening 11/13/2007 HPV/Cotest 11/13/2007 Mammogram 2017 COVID-19 Vaccine ( - 2023-2 5 season) 2023 Influenza Vaccine (#1) 2024 Zoster Vaccines (1 of 2) 11/13/2027 RSV Patients and Pa tients Aged 60 years or older (1 - 1-dose 75+ series) 2052 HIB Vaccines Aged Out No longer eligi ble based on patient's age to complete this topic HPV Vaccines Aged Out No longer eligi ble based on patient's age to complete this topic Hepatitis A Vaccines Aged Out No long er eligible based on patient's age to complete this topic IPV Vaccines Aged Out No longer eligi ble based on patient's age to complete this topic Meningococcal B Vaccine Aged Out No l onger eligible based on patient's age to complete this topic Meningococcal Vaccine Aged Out No lucius amelie eligible based on patient's age to complete this topic Pneumococcal Vaccine: Pediat rics (0 to 5 Years) and At-Risk Patients (6 to 49) Years Aged Out No longer eligible b ased on patient's age to complete this topic RSV under 20 months Aged Out No longe r eligible based on patient's age to complete this topic Rotavirus Vaccines Aged Out No longer eligible based on patient's age to complete this topic
--- OUTSIDE RECORDS SUMMARY | 2024-11-05 07:37 | XMS_ITS | Clinical Summary ---
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 Name Role Phone Unavailable Primary Care Provider Unavailabl e Social History Tobacco Use Types Packs/Day Years Used Date Smoking Tobacco: Never Assessed Comments Unknown Sex and Gender Information Value Date Recorded Sex Assigned at Not on file Legal Sex Female 1:30 AM EST Gender Identity Not on file Sexual Orientation Not on file Plan of Treatment Health Maintenance Due Date Last Done Comments Breast Cancer Screening 1977 DTaP,Tdap,and Td Vaccines (1 - Tdap) 1996 Hepatitis B Vaccines (1 of 3 - 19+ 3-dose series) 1996 Cervical Cancer Screening: P ap Smear 1998 COVID-19 Vaccine (2023-2 5 season) 2023 Depression Screening 04/03/2024 Influenza Vaccine (#1) 2024 HIB Vaccines Aged Out No longer eligi [...] on patient's age to complete this topic MMR Vaccines Aged Out No longer eligi ble based on patient's age to complete this topic Meningococcal ACWY Vaccine Aged Out N o longer eligible based on patient's age to complete this topic Meningococcal B Vaccine Aged Out No l onger eligible based on patient's age to complete this topic Pneumococcal Vaccine: Pediat rics (0 to 5 Years) and At-Risk Patients (6 to 49 Years) Aged Out No longer eligible b ased on patient's age to complete this topic RSV Immunization Patients Un sole 20 months Aged Out No longer eligible b ased on patient's age to complete this topic Varicella Vaccines Aged Out No longer eligible based on patient's age to complete this topic
--- OUTSIDE RECORDS SUMMARY | 2024-11-05 07:37 | XMS_ITS | Clinical Summary ---
Author Organization [facility] [place] [address] Care Team Providers Care Autotransfusionist Name Role Phone Errol Rucker DO Primary Care Provider [phone] Allergies Active Allergy Reactions Criticality Noted Date Comments Adhesive Tape CIS - Rash Cis Free Text Allergy Medium seasonal/environmental. CIS - Allergic Rhinitis House Dust Medium CIS - Allergic Rhinitis Medications ASPIRIN/ACETAMIN OPHEN/CAFFEINE (EXCEDRIN EXTRA STRENGTH ORAL) 06/20/2008 Acti ve hydroCODone-acet aminophen (VICODIN) 5-500 mg per tablet 1 Tablet(s) , PO, Q4-6H,PRN 06/20/2008 Active Social History Tobacco Use Types Packs/Day Years Used Date Smoking Tobacco: Never Assessed Comments Unknown Sex and Gender Information Value Date Recorded Sex Assigned at Not on file Legal Sex Female 6:56 AM EST Gender Identity Not on file Sexual Orientation Not on file Plan of Treatment Health Maintenance Due Date Last Done Comments CT Colonography 1977 Colonoscopy 1977 Colorectal Cancer Screening 1977 FIT DNA 1977 FIT 1977 Sigmoidoscopy (10 year) with FIT yearly 1977 Sigmoidoscopy 1977 HIV screen 11/13/1995 Hepatitis C Screening 11/13/1995 Hepatitis B vaccine (0-59 yr s) and Risk (1) 1996 Tetanus/Diphtheria/Pertussis Vaccines (1 - Tdap) 1996 HPV test 11/13/2007 PAP Smear 04/14/2011 04/14/2006, 12/03, 09/23/2003, Additional history exists Breast Cancer Share Decision Needed 2017 Breast Cancer screening 2017 Covid-19 Vaccine (2023-2 5 season) 2023 Influenza (Flu) vaccine (1 o f 1 - Influenza standard series) 12/02/2024 Procedures Procedure Name Priority Date/Time Associated Diagnosis Comments CYTOPATHOLOGY GYNECOLOGICAL Routine 04/14/2006 from Last 3 Months or Most Recently Relevant to Health Maintenance Results * (ABNORMAL) Cytopathology Gynecological (04/14/2006) Firmware Developer Cytology Final Report Please see Mikki Perez legacy report(Exte rnal Lab) MIKKI PEREZ CONVERSION 04/14/2006 Narrative MIKKI PEREZ CONVERSION - 04/20/2006 Please see [facility]ki [facility] Legacy report us Results Provider Apd Conversion MD PATHOLOGY/CYT OLOGY ORDERABLES Final Result MIKKI PEREZ CONVERSION [address] [place] [address] from Last 3 Months or Most Recently Relevant to Health Maintenance Care Teams Autotransfusionist Relationship Specialty Start Date End Date Errol Rucker DO [address] [place] [address] PCP - General 02/23/10
[2024-11-05 07:43] VITALS: BP 165/78; PULSE 50; RESP 16; TEMP 36.6; O2SAT 99
[2024-11-05 07:46] VITALS: O2SAT 99
[2024-11-05 08:12] VITALS: BP 165/78; PULSE 50; RESP 16; TEMP 36.6; O2SAT 99
== END 2024-11-05 08:13 | disposition home or self-care (01) ==
LOC: HO.ED 07:36
PROVIDERS: Emergency Provider Emergency Medicine
DX: J02.0 Streptococcal pharyngitis (principal); R09.89 Other specified symptoms and signs involving the circulatory and respiratory systems
CPT/HCPCS: 87637; 87651; 99283; 99284